=== PATIENT | male | born 1960 | race Caucasian/White ===

== ENCOUNTER 2023-04-25 12:09 | Emergency (ER) | payer OTHER ==
[~2023-04-25] VITALS: Ht 175.3 cm; Wt 107.5 kg
[2023-04-25 12:09] VITALS: TEMP 98.5
[2023-04-25] MEDS ORDERED: METF-838 PO (14:29)
[2023-04-25] MEDS ORDERED: METO1TAB87 PO (14:29)
[2023-04-25] MEDS ORDERED: ROSU40TA4 PO (14:29)
[2023-04-25] MEDS ORDERED: FERR325T3 PO (14:29)
[2023-04-25] MEDS ORDERED: LEVAINH INH (14:29)
[2023-04-25] MEDS ORDERED: GLIP5TAB20 PO (14:29)
[2023-04-25] MEDS ORDERED: CHLO125TA PO (14:29)
[2023-04-25] MEDS ORDERED: FASE30IN SC (14:29)
[2023-04-25] MEDS ORDERED: LISI20TA33 PO (14:29)
[2023-04-25] MEDS ORDERED: CETI-24 PO (14:29)
[2023-04-25 15:52] VITALS: BP 146/71; O2SAT 97
== END 2023-04-25 15:53 | disposition home or self-care (01) ==
LOC: M ED 12:09
DX: S83.92XA Sprain of unspecified site of left knee, initial encounter (principal); X58.XXXA Exposure to other specified factors, initial encounter; Y92.89 Other specified places as the place of occurrence of the external cause; Y93.89 Activity, other specified; Y99.8 Other external cause status; M25.462 Effusion, left knee; E11.9 Type 2 diabetes mellitus without complications; I10 Essential (primary) hypertension; Z79.899 Other long term (current) drug therapy; Z79.84 Long term (current) use of oral hypoglycemic drugs

== ENCOUNTER 2024-03-26 13:34 | Emergency (ER) | payer OTHER ==
[~2024-03-26] VITALS: Ht 175.3 cm; Wt 102.3 kg
[~2024-03-26 13:34] MED LIST: CETI-24 PO; CHLO125TA PO; FASE30IN SC; FERR325T3 PO; GLIP5TAB20 PO; LEVAINH INH; LISI20TA33 PO; METF-838 PO; METO1TAB87 PO; ROSU40TA63 PO
[2024-03-26 13:35] VITALS: BP 145/73; TEMP 97.3; O2SAT 98
[2024-03-26] MEDS: predniSONE 20 MG TAB PO ONE (16:58)
[2024-03-26] MEDS: diazePAM 10 MG TAB PO ONE (16:58)
[2024-03-26] MEDS: KETOROLAC 60MG 2ML VIAL IM ONE (16:58)
[2024-03-26] MEDS ORDERED: METH-1165 PO (18:04)
[2024-03-26] MEDS ORDERED: HYDR-3713 PO (18:04)
== END 2024-03-26 18:25 | disposition home or self-care (01) ==
LOC: M ED 13:34
DX: M50.321 Other cervical disc degeneration at C4-C5 level (principal); M43.23 Fusion of spine, cervicothoracic region; E11.9 Type 2 diabetes mellitus without complications; I10 Essential (primary) hypertension; E78.5 Hyperlipidemia, unspecified; J45.909 Unspecified asthma, uncomplicated; Z79.84 Long term (current) use of oral hypoglycemic drugs; Z79.899 Other long term (current) drug therapy
CPT/HCPCS: 70450; 72125; 96372; 99282; J1885; J7512